=== PATIENT | male | born 1990 | race American Indian/Alaskan Native ===

== ENCOUNTER 2017-08-23 23:35 | Emergency (ER) | payer SELFPAY ==
--- NOTE | 2017-08-24 04:27 | Cat Scan Report ---
FINAL REPORT EXAM: CT HEAD/BRAIN WO CON HISTORY: head injury TECHNIQUE: CT imaging acquired through the head without intravenous contrast. Transaxial reformations are provided. PRIORS: None. FINDINGS: The ventricles, cisterns and sulci are normal. No intraparenchymal or extra-axial mass, hemorrhage, or mass effect. Figueroa and white-matter differentiation is normal. Normal spherical shape of the globes. Paranasal sinuses and mastoid air cells are clear. Right occipital scalp injury. No skull fracture visualized. IMPRESSION: No acute intracranial abnormality. Right occipital scalp injury. No skull fracture.
--- NOTE | 2017-08-24 04:30 | Cat Scan Report ---
FINAL REPORT EXAM: CT FACIAL BONES WO CON HISTORY: head injury/left jaw swelling TECHNIQUE: CT images are acquired through the face without contrast. Transaxial , coronal and sagittal reformations are provided. PRIORS: None. FINDINGS: No facial fractures. The bony orbits, nasal bones, pterygoid plates, mandible and maxilla are intact. There is mucosal thickening at the inferior aspect of both maxillary sinuses. Periapical lucencies with some surrounding expansion are present within the right maxilla on axial series 3, image 56 and posterior left mandible on axial image 31. No periosteal reaction. Left facial mild soft tissue swelling overlying parotid gland and left mandible. Normal spherical shape of the globes. No significant abnormality within the remaining paranasal sinuses or mastoid air cells. IMPRESSION: No facial fracture. Periapical lucencies involving maxillary and mandibular molars may be secondary to dental infection. Clinical correlation is requested.
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
[2017-08-24] MEDS ORDERED: PERCOCET 5/325 PO ONE (10:41)
[2017-08-24] MEDS ORDERED: KEFLEX PO ONE (10:41)
[2017-08-24] MEDS ORDERED: TRIPLE ANTIBIOTIC TP ONE (11:55)
[2017-08-24] MEDS ORDERED: BOOSTRIX IM ONE (11:56)
[2017-08-24 12:42] VITALS: BP 130/76
== END 2017-08-24 12:42 | disposition home or self-care (01) ==
LOC: ED 23:35
DX: S01.511A Laceration without foreign body of lip, initial encounter (principal); S00.83XA Contusion of other part of head, initial encounter; S00.01XA Abrasion of scalp, initial encounter; S06.9X9A Unspecified intracranial injury with loss of consciousness of unspecified duration, initial encounter; G44.319 Acute post-traumatic headache, not intractable; M79.1 Myalgia; F17.200 Nicotine dependence, unspecified, uncomplicated; Y08.89XA Assault by other specified means, initial encounter; Y93.9 Activity, unspecified; Y99.9 Unspecified external cause status; Y92.89 Other specified places as the place of occurrence of the external cause
CPT/HCPCS: 70450; 70486; 90471; 90715; A6250